=== PATIENT | female | born 1960 | race Caucasian/White ===

== ENCOUNTER → 2019-09-20 15:42 | Outpatient (CLI) | payer BC, SELFPAY ==
[2019-09-20 14:43] VITALS: BMI 29.9
[2019-09-24 17:35] LABS: HPV APTIMA, High Risk Negative (Negative)
== END ==
PROVIDERS: PCP Internal Medicine; Referring Provider Nurse Practitioner Women's Health; Visit Provider Nurse Practitioner Women's Health
DX: Z12.4 Encounter for screening for malignant neoplasm of cervix (principal)
CPT/HCPCS: 87624; 88175; G0145

== ENCOUNTER → 2020-03-19 15:00 | Outpatient (CLI) | payer BC, SELFPAY ==
[2020-03-19 14:19] VITALS: BMI 30.7
--- NOTE | 2020-03-19 15:00 | EMB_PTH ---
PATIENT: FIDEL WHITE LOC: [facility] U#:[id number] AGE/SX: 64/F ROOM: RE03/19/[address]: BIBIANA Izaguirre : 1960 BED: DIS: SPEC #: [id number] RECD: 03/19/20 15:50 STATUS: MOHSEN JESSY #: [id number] MARIANNA: 03/19/20 15:[address]: Emperatriz Sanchez NP DEPT: SURGICAL PATHOLOGY RECD BY: Christine Alberts ENTERED: 03/20/20 06:34 SP TYPE: ENDOM BX/C ANN MARIE DR: Dr. Mitra Monte, DO Tissues: Endometrium, NOS Procedures: Surgery Specimen Level IV HEADER OPERATION: Endometrial biopsy PRE-OP DIAGNOSIS: PMB TISSUE SUBMITTED: Endometrial lining MICROSCOPIC DIAGNOSIS Endometrium, biopsy: Strips of benign superficial endometrium. Rare fragments of benign detached squamous mucosa. AM:elder 03/21/2020 MICROSCOPIC DESCRIPTION Slides are reviewed. GROSS DESCRIPTION Received is one container labeled with the patient's name and not further designated. The specimen consists of light ortiz-pink mucoid material aggregating to 1.5 x 1.2 x 0.1 cm. The specimen is totally submitted in one cassette. / AM:elder 03/20/20 TC:5 CPT: 29651
== END ==
PROVIDERS: PCP Internal Medicine; Referring Provider Nurse Practitioner Women's Health; Visit Provider Nurse Practitioner Women's Health
DX: N95.0 Postmenopausal bleeding (principal)
CPT/HCPCS: 88305

== ENCOUNTER → 2020-04-10 16:04 | Outpatient (CLI) | payer BC, SELFPAY ==
[2020-03-19 14:19] VITALS: BMI 30.7
--- NOTE | 2020-04-10 16:06 | US_ITS ---
STUDY: ULTRASOUND OF THE FEMALE PELVIS - COMPLETE REASON FOR EXAM: Female, 59 years old. abnormal uterine bleeding LMP: TECHNIQUE: Transabdominal and transvaginal TECHNICAL QUALITY: Adequate. COMPARISON: None. FINDINGS: The uterus is anteverted and is in a midline position. The uterus measures 5.3 x 3.2 x 2.5 cm. Normal uterine cervix. The endometrium measures 2 mm in thickness, and is hyperechoic. There is no demonstrated endometrial mass. There is no demonstrated myometrial mass. I.U.D. - The patient does not have an I.U.D. The right ovary is visualized. The right ovary measures 1.6 x 1.3 x 0.8 cm. There is no right ovarian cyst or ovarian mass. There is no visualized right adnexal mass or complex lesion. There is normal arterial and normal venous vascularity. The left ovary is visualized. The left ovary measures 0.2 x 1.1 x 0.8 cm. There is no left ovarian cyst or ovarian mass. There is no visualized left adnexal mass or complex lesion. There is normal arterial and normal venous vascularity. There is no fluid in the cul-de-sac. The pre void volume of the bladder was 625.56 ml. US/Pelvic (Non ) IMPRESSION: Normal female pelvis. Electronically Signed: Mario Christian MD at 21:03 EST , Service support ,
--- NOTE | 2020-04-10 16:06 | US_ITS ---
STUDY: ULTRASOUND OF THE FEMALE PELVIS - COMPLETE REASON FOR EXAM: Female, 59 years old. abnormal uterine bleeding LMP: TECHNIQUE: Transabdominal and transvaginal TECHNICAL QUALITY: Adequate. COMPARISON: None. FINDINGS: The uterus is anteverted and is in a midline position. The uterus measures 5.3 x 3.2 x 2.5 cm. Normal uterine cervix. The endometrium measures 2 mm in thickness, and is hyperechoic. There is no demonstrated endometrial mass. There is no demonstrated myometrial mass. I.U.D. - The patient does not have an I.U.D. The right ovary is visualized. The right ovary measures 1.6 x 1.3 x 0.8 cm. There is no right ovarian cyst or ovarian mass. There is no visualized right adnexal mass or complex lesion. There is normal arterial and normal venous vascularity. The left ovary is visualized. The left ovary measures 0.2 x 1.1 x 0.8 cm. There is no left ovarian cyst or ovarian mass. There is no visualized left adnexal mass or complex lesion. There is normal arterial and normal venous vascularity. There is no fluid in the cul-de-sac. The pre void volume of the bladder was 625.56 ml. US/Transvaginal Non- IMPRESSION: Normal female pelvis. Electronically Signed: Mario Christian MD at 21:03 EST , Service support ,
== END ==
PROVIDERS: PCP Internal Medicine; Referring Provider Nurse Practitioner Women's Health; Visit Provider Nurse Practitioner Women's Health
DX: N93.9 Abnormal uterine and vaginal bleeding, unspecified (principal)
CPT/HCPCS: 76830; 76856